=== PATIENT | female | born 1940 | race Hispanic/Latino ===

== ENCOUNTER → 2025-02-10 | Outpatient (CLI) | payer MEDICARE ==
[~2025-02-10] MED LIST: LIDOCAINE HCL 4% LTA SOL 4 ML VIAL ONE
== END | disposition home or self-care (01) ==
LOC: WHH 10:44
PROVIDERS: ATTEND Family Medicine
DX: L97.822 Non-pressure chronic ulcer of other part of left lower leg with fat layer exposed (principal); S80.821A Blister (nonthermal), right lower leg, initial encounter; L03.116 Cellulitis of left lower limb; I10 Essential (primary) hypertension; E78.5 Hyperlipidemia, unspecified; E04.1 Nontoxic single thyroid nodule; B96.5 Pseudomonas (aeruginosa) (mallei) (pseudomallei) as the cause of diseases classified elsewhere; R22.43 Localized swelling, mass and lump, lower limb, bilateral; Z86.73 Personal history of transient ischemic attack (TIA), and cerebral infarction without residual deficits; X58.XXXA Exposure to other specified factors, initial encounter; Y93.89 Activity, other specified; Y92.89 Other specified places as the place of occurrence of the external cause; Y99.8 Other external cause status
CPT/HCPCS: 87070; 87086; 87186; G0463; A6250; A4450